=== PATIENT | female | born 1950 | race Caucasian/White ===

== ENCOUNTER → 2023-10-08 | Outpatient (CLI) | payer MEDICARE, OTHER ==
--- NOTE | 2023-10-08 18:29 | BD ---
EXAMINATION TYPE: Axial Bone Density DATE OF EXAM: 10/08/2023 CLINICAL HISTORY: 72 years old Female. ICD-10 CODE: Z12.31 SCREENING N95.1 MENOPAUSAL AND FEMALE CLI MA Height: 59 in Weight: 155 lbs FRAX RISK QUESTIONS: Secondary Osteoporosis: 3. Menopause before 45: age 40 RISK FACTORS MEDICATIONS: EXAM MEASUREMENTS: Bone mineral densitometry was performed using the [facility]. Bone mineral density as measured about the Lumbar spine is: ----- L1-L4(G/cm2): 1.247 T Score Values are as follows: ----- L1: 0.0 ----- L2: 0.5 ----- L3: 0.8 ----- L4: 0.9 ----- L1-L4: 0.6 Z Score Values are as follows: ----- L1: 1.6 ----- L2: 2.0 ----- L3: 2.3 ----- L4: 2.4 ----- L1-L4: 2.1 Bone mineral density baseline Bone mineral density about the R hip (g/cm2): 1062 Bone mineral density about the L hip (g/cm2): 1.021 T Score values are as follows: -----R Neck: -0.8 -----L Neck: -1.1 -----R Total: 0.4 -----L Total: 0.1 Z Score values are as follows: -----R Neck: 1.0 -----L Neck: 0.7 -----R Total: 2.0 -----L Total: 1.7 Bone mineral density baseline FRAX%s: The graph provided illustrates a 9.4% chance for a major osteoporotic fx and a 1.4% chance fo r the hips probability for fx in 10 years time. IMPRESSION: Osteopenia (T Score between -2.5 and -1). There is slightly increased risk of fracture and the patient may be considered for treatment. Re-Screen 2-5 years. NOTE: T-SCORE=SD OF THE YOUNG ADULT MEAN.
--- NOTE | 2023-10-11 21:39 | MM ---
Reason for Exam: Screening (asymptomatic). Last mammogram was performed 2 year(s) and 4 month(s) ago. Patient History: Menarche at age 11. First Full-Term at age 17. Postmenopausal. Patient has history of breast feeding. Risk Values: Mary 5 year model risk: 1.3%. NCI Lifetime model risk: 3.0%. Prior Study Comparison: 11/08/2018 Bilateral Screening Mammogram, [place]. 03/27/2020 Bilateral Screening Mammogram, [place]. 06/03/2021 Bilateral Screening Mammogram, [place]. Tissue Density: There are scattered fibroglandular densities. Findings: Analyzed By CAD. The pattern is symmetrical. No significant interval change is evident. Scattered benign vascular calcifications are present. No suspicious groups of microcalcifications, spiculated or lobular masses, architectural distortion or other secondary signs of malignancy are mammographically apparent. Overall Assessment: Benign, BI-RAD 2 Management: Screening Mammogram of both breasts in 1 year. A negative mammogram report should not preclude additional follow up of suspicious palpable abnormalities. Patient should continue monthly self breast exam. A clinical breast exam by your physician is recommended on an annual basis and results should be correlated with mammographic findings. Electronically signed and approved by: Erick Lacy D.O. Radiologis
== END | disposition home or self-care (01) ==
LOC: RADMAMWWP 13:12
PROVIDERS: ATTEND Internal Medicine
DX: Z12.31 Encounter for screening mammogram for malignant neoplasm of breast (principal); N95.1 Menopausal and female climacteric states
CPT/HCPCS: 77067; 77080